=== PATIENT | female | born 1940 | race Caucasian/White ===

== ENCOUNTER 2023-06-28 13:14 | Emergency (ER) | payer OTHER, SELFPAY ==
[2023-06-28 13:17] VITALS: BP 161/70
[2023-06-28 13:36] LABS: % Basophils 0.3 % (0-2); % Immature Granulocytes 0.4 % (0-0.5); % Lymphocytes 9.3 % (20.5-51.1); % Monocytes 6.1 % (1.7-9.3); % Neutrophils 83.9 % (42.2-75.2); Absolute Lymphocytes 0.9 10^3/uL (1.2-3.4); Absolute Monocytes 0.6 10^3/uL (0.1-0.6); Absolute Neutrophils 8.5 10^3/uL (1.4-6.5); Hematocrit 38.2 % (37.0-47.0); Hemoglobin 12.3 g/dL (12.0-16.0); Mean Corp Hgb Conc. 32.2 g/dL (33.0-37.0); Mean Corpuscular Hgb 28.9 pg (27.0-31.0); Mean Corpuscular Volume 89.7 fL (81.0-99.0); Mean Platelet Volume 9.1 fL (7.4-10.4); Nucleated Red Blood Cells % 0 %; Platelet Count 247 10^3/uL (130-400); Red Blood Cell Count 4.26 10^6/uL (4.20-5.40); Red Cell Dist. Width 15.8 % (11.5-14.5); White Blood Cell Count 10.1 10^3/uL (4.8-10.8)
[2023-06-28 13:57] LABS: ALT (SGPT) 37 U/L (0-35); AST (SGOT) 36 U/L (14-36); Albumin 4.3 g/dl (3.5-5.0); Alkaline Phosphatase 82 U/L (38-126); Blood Urea Nitrogen 38 mg/dl (7-17); Calcium 9.9 mg/dl (8.4-10.2); Carbon Dioxide 25 mmol/L (22-30); Chloride 100 mmol/L (98-107); Glucose 130 mg/dl (70-99); Sodium 132 mmol/L (135-145); Total Bilirubin 0.3 mg/dl (0.2-1.3); Total Protein 6.9 g/dl (6.3-8.2); eGFR 40.55
[2023-06-28 15:33] VITALS: BP 153/56
[2023-06-28 15:34] VITALS: BMI 29.3
[2023-06-28 16:00] VITALS: BP 139/51
[2023-06-28 17:00] VITALS: BP 154/65
--- NOTE | 2023-06-28 17:03 | ED.GENMED ---
History of Present Illness
General
Chief Complaint: Fainting Sensation
Source: patient and family
Exam Limitations: none
Time Seen by Provider: 06/28/23 16:00
Nursing documentation reviewed up to this point in time: agreed with
Travel History
Have you had any contact with someone who has COVID-19?: No
Do you have any symptoms of coronavirus? Fever > 100 degrees, chills, cough, shortness of breath, sore throat, loss of taste or smell, muscle aches, or headache?: No
History of Present Illness
History of Present Illness:
Patient is a 38-year-old female presents to the emergency department after becoming weak and lightheaded today and going to the ground and was unable to get up. Patient called her daughter and was brought to the emergency department after calling
her physician. Patient denies headache, visual or speech difficulties. Patient denies any chest pain, shortness of breath or palpitations. Patient was not feeling well yesterday and did not eat much. Patient no vomiting, diarrhea, melena or
hematochezia. Patient not have any abdominal pain. Patient denies symptoms. Patient denies any recent illnesses or injuries. Patient gets immunologic infusions every 8 weeks for her rheumatoid arthritis. Patient's also on methotrexate.
Past History
Past History
ED Past Medical History: HTN, Hypothyroidism and Other (Rheumatoid arthritis, osteoarthritis)
Review of Systems
Review of Systems
All Other Systems: ROS reviewed and negative except as documented in HPI and ROS
Constitutional: Reports fatigue and chills; Denies fever, weight gain or weight loss
EENT: Reports no symptoms
Respiratory: Reports no symptoms
Cardiac: Reports no symptoms
ABD/GI: Reports no symptoms
: Reports no symptoms
Musculoskeletal: Reports no symptoms
Skin: Reports no symptoms
Neurological: Reports weakness (Generalized); Denies headache
Hematologic/Lymphatic: Reports no symptoms
Phy Exam
Physical Exam
Physical Exam:
Physical Exam
General: No apparent distress, alert and appropriate, well nourished, well hydrated
HENT: Normocephalic, supple with no lymphadenopathy, no thyromegaly
Eyes: Clear sclera, conjuctiva without injection
Heart: Regular rhythm and rate. No S3, S4. No murmur. No NVD
Lungs: No respiratory distress, no stridor, lung sounds clear and equal bilaterally
Abdomen: Soft, nontender, no organomegaly, BS good
Neuro: Alert and oriented x 3, CN II - XII intact, no motor focality, no cerebellar dysfunction
Skin: no rash
Psychiatric: well kept. interactive and cooperative
Extremities: No edema, cyanosis, tenderness, Good and equal peripheral pulses.
Course
Orders/Labs/Results
Orders:
Orders
06/28/23 13:22
Electrocardiogram (*1) Urgent
Reason for Study: Syncope
EKG- Treatment ONCE
06/28/23 13:26
Complete Blood Count/With Diff Urgent
Comprehensive Metabolic Panel Urgent
Free T4 Urgent
TSH Reflex To Free T4 Urgent
Comment: TSH REFLEX ADDED ON BY FLOOR 5PM 06-28-23
06/28/23 16:59
Add On- LAB Urgent
Tests Added?: tsh reflex t4
06/28/23 18:08
0.9% Sodium Chloride 500 ml [Nss] 500 ml IV BOLUS
06/28/23 18:21
Urinalysis Reflex To Culture Urgent
Date Specimen was Collected: 06/28/23
Time Specimen was Collected: 18:09
Abnormal Lab Results
06/28/23
13:26
MCHC 32.2 L g/dL
(33.0-37.0)
RDW 15.8 H %
(11.5-14.5)
Absolute Neuts (auto) 8.5 H 10^3/uL
(1.4-6.5)
Absolute Lymphs (auto) 0.9 L 10^3/uL
(1.2-3.4)
Neutrophils % 83.9 H %
(42.2-75.2)
Lymphocytes % 9.3 L %
(20.5-51.1)
Sodium 132 L mmol/L
(135-145)
BUN 38 H mg/dl
(7-17)
Creatinine 1.3 H mg/dL
(0.6-1.0)
Glucose 130 H mg/dl
(70-99)
ALT 37 H U/L
(0-35)
TSH (Reflex) 6.97 H uIU/ml
(0.47-4.68)
06/28/23 13:26
06/28/23 13:26
Vital Signs
Initial and Last Documented VS:
Initial Vital Signs
Temp Pulse Resp BP Pulse Ox
98.2 F 78 16 161/70 98
06/28/23 13:17 06/28/23 13:17 06/28/23 13:17 06/28/23 13:17 06/28/23 13:17
Last Documented Vital Signs
Temp Pulse Resp BP Pulse Ox
98.2 F 74 16 152/62 96
06/28/23 13:17 06/28/23 18:00 06/28/23 18:00 06/28/23 18:00 06/28/23 18:19
*Pulse Oximetry
Patient hypoxic: no
*EKG
Interpreted by ED Provider?: Yes
EKG Intrepretation Date: 06/28/23
EKG Intrepretation Time: 18:12
Interpretation: normal
Comparison EKG: no comparison EKG present
Heart Rate: 74
Rate: normal
Rhythm: sinus
[place]: normal axis
Interval: normal interval
QRS Pattern: normal QRS
Ischemia: no ischemia
*Hand Marker Interpretation
Rate: normal
Interpretation: normal
Heart Rate: 74
Rhythm: sinus
*Critical Care Note
Total Time (30-74mins, 75-104mins- exclusive of procedures): Not Applicable
Update Note
Update Note:
Patient's BUN and creatinine are slightly elevated from her baseline according to the primary care physician. Patient's UA is fine. Waiting the T4 however we will let the patient go home. Also after conferring with patient's physician she will
be seen later in the week..
ED Attending Note
-
Portions of this chart may have been created with voice recognition software.� Occasional wrong word or��sound alike� substitutions may have occurred due to the inherent limitations of voice recognition software.
Discharge Plan
Departure
Patient Disposition: Home (Routine Discharge)
Date of Disposition: 06/28/23
Time of Disposition: 18:58
Patient with high blood pressure during this ER visit?: No
Condition: Fair
Covid-19: Not Applicable
Discharge Problem:
Weakness, Near syncope
Instructions: Generalized Weakness (DC), Near Fainting (DC)
Referrals:
Mj Muñoz MD [Family Provider] - Follow up in 2-3 days
Activity Restrictions/Additional Instructions:
Stop lisinopril. Otherwise continue other medications and make sure to see your physician this week.
Interventions
Interventions:
*Risk Screen - Suicide Last Done: 06/28/23 15:35
*General Assessment Last Done: 06/28/23 15:35
*Neglect/Abuse Screening Last Done: 06/28/23 15:35
ED- Fall Risk Assessment Last Done: 06/28/23 15:48
*ED COVID-19 Vaccine History Last Done: 06/28/23 13:17
ED- Cardiac Assessment Last Done: 06/28/23 15:35
ED- Neurological Assessment Last Done: 06/28/23 15:35
Discharge Date and Time
Print Language: FRISIAN
[2023-06-28 18:00] VITALS: BP 152/62
[2023-06-28] MEDS: NSS 500 IV (18:20)
[2023-06-28 18:30] LABS: Urine Albumin Negative (Neg - Trace); Urine Bilirubin Negative (Negative); Urine Character Clear (Clear); Urine Color Yellow; Urine Glucose Negative (Negative); Urine Ketone Negative (Negative); Urine Leukocyte Negative (Negative); Urine Nitrite Negative (Negative); Urine Occult Blood Negative (Negative); Urine Urobilinogen Negative (Neg - 1+); Urine pH 6.5 (5.0-9.0)
[2023-06-28 18:46] LABS: TSH Reflex To Free T4 6.97 uIU/ml (0.47-4.68)
[2023-06-28 19:00] VITALS: BP 163/61
[2023-06-28 19:19] LABS: Free T4 0.85 ng/dl (0.78-2.19)
== END 2023-06-28 19:28 | disposition home or self-care (01) ==
LOC: EMR 13:14
PROVIDERS: Emergency Medicine; EMERGENCY PHYSICIAN Emergency Medicine; FAMILY PHYSICIAN Family Medicine
DX: R53.1 Weakness (principal); R55 Syncope and collapse; M06.9 Rheumatoid arthritis, unspecified
CPT/HCPCS: 99284; 80053; 81003; 84439; 84443; 85025; 93005